=== PATIENT | female | born 1990 | race Caucasian/White ===

== ENCOUNTER 2016-11-15 19:25 | Emergency (ER) | payer BC, MEDICAID ==
[~2016-11-15] VITALS: Ht 167.6 cm; Wt 54.4 kg
[~2016-11-15 19:25] MED LIST: HYDR-3714 PO
[2016-11-15 19:42] LABS: BASOPHILS % (AUTO) 0 % (0-10); EOSINOPHILS # (AUTO) 0.2 10^3/uL (0.0-0.3); EOSINOPHILS % (AUTO) 2 % (0-10); LYMPHOCYTES # (AUTO) 0.8 X 10^3 (1.0-4.0); LYMPHOCYTES % (AUTO) 7 % (12-44); MEAN CORPUSCULAR HEMOGLOBIN 31 PG (25-34); MEAN CORPUSCULAR HGB CONC 33 G/DL (32-36); MEAN CORPUSCULAR VOLUME 94 FL (80-99); MEAN PLATELET VOLUME 11.3 FL (7.4-10.4); MONOCYTES # (AUTO) 0.7 X 10^3 (0.0-1.0); MONOCYTES % (AUTO) 7 % (0-12); NEUTROPHILS # (AUTO) 8.6 X 10^3 (1.8-7.8); NEUTROPHILS % (AUTO) 84 % (42-75); PLATELET COUNT 228 10^3/uL (130-400); RED BLOOD COUNT 5.22 10^6/uL (4.35-5.85); RED CELL DISTRIBUTION WIDTH 13.2 % (10.0-14.5); WHITE BLOOD COUNT 10.2 10^3/uL (4.3-11.0)
[2016-11-15 20:05] LABS: BAND NEUTROPHILS 3 %; BASOPHILS % (MANUAL) 0 %; EOSINOPHILS % (MANUAL) 4 %; LYMPHOCYTES % (MANUAL) 15 %; NEUTROPHILS % (MANUAL) 78 %
[2016-11-15 20:11] LABS: ALANINE AMINOTRANSFERASE 14 U/L (0-55); ALBUMIN 4.8 G/DL (3.2-4.5); AMYLASE 77 U/L (25-125); ANION GAP 14 MMOL/L (5-14); ASPARTATE AMINO TRANSFERASE 19 U/L (5-34); BILIRUBIN,TOTAL 0.9 MG/DL (0.1-1.0); BLOOD UREA NITROGEN 12 MG/DL (7-18); BUN/CREATININE RATIO 15; CALCIUM 9.3 MG/DL (8.5-10.1); CARBON DIOXIDE 22 MMOL/L (21-32); CHLORIDE 104 MMOL/L (98-107); GFR ESTIMATED > 60; GLUCOSE 116 MG/DL (70-105); LIPASE 10 U/L (8-78); POTASSIUM 3.4 MMOL/L (3.6-5.0); SODIUM 140 MMOL/L (135-145); TOTAL PROTEIN 7.6 G/DL (6.4-8.2)
[2016-11-15 20:24] LABS: BILIRUBIN,URINE NEGATIVE (NEGATIVE); KETONES,URINE 4+ (NEGATIVE); LEUKOCYTE ESTERASE ,URINE 1+ (NEGATIVE); NITRITE,URINE NEGATIVE (NEGATIVE); PH,URINE 5 (5-9); PROTEIN,URINE 1+ (NEGATIVE); UROBILINOGEN,URINE NORMAL (NORMAL)
[2016-11-15] MEDS ORDERED: FAMOTIDINE 20MG/2ML IV (PEPCID) IV STA (20:28)
[2016-11-15 20:39] LABS: SQUAMOUS EPITHELIAL CELL,UR 0-2 /HPF
[2016-11-15] MEDS ORDERED: NS IV 500 ML 500 ML IV ONE (20:58)
--- NOTE | 2016-11-15 21:05 | ED GI ---
General Chief Complaint: Abdominal/GI Problems Stated Complaint: ABD PAIN Nursing Triage Note: pt arrived via abulance to ed rm 03. pt states she picked up her son from school around 1600 today and starting having sharp abd pain 03/31. pt states she has had multiple vomiting and diarrhea episodes since 1600. ems gave zofran and fluids while in route. pt complains of dizziness. Sepsis Screen: No Definite Risk History of Present Illness Time Seen By Provider: 19:25 Initial Comments Evaluation for abdominal pain, nausea, vomiting and diarrhea. The patient's symptoms started at approximately 1600 today. She reports last feeding at 1330 today. She denies eating any new foods. She denies any household members being ill. Timing/Duration: 1-3 Hours Severity/Quality: Moderate Location: Generalized Abdomen Radiation: No Radiation Activities at Onset: None Modifying Factors: Improves With Lying down, Improves With Resting Associated Symptoms: Fatigue, Nausea/Vomiting Allergies and Home Medications Allergies Coded Allergies: No Known Drug Allergies (Unverified , 11/25/13) Home Medications No Active Prescriptions or Reported Meds Review of Systems Constitutional: no symptoms reported, see HPI EENTM: No Symptoms Reported, See HPI Respiratory: No Symptoms Reported, See HPI Cardiovascular: No Symptoms Reported, See HPI Gastrointestinal: See HPI, Abdominal Pain, Diarrhea, Nausea, Poor Appetite, Vomiting Genitourinary: No Symptoms Reported, See HPI Musculoskeletal: no symptoms reported, see HPI Skin: no symptoms reported, see HPI Psychiatric/Neurological: No Symptoms Reported, See HPI Endocrine: No Symptoms Reported, See HPI Hematologic/Lymphatic: No Symptoms Reported, See HPI All Other Systems Reviewed Negative Unless Noted: Yes Past Cdftjsu-Judvgq-Paqaub Hx Patient Social History Alcohol Use: Occasionally Uses Recreational Drug Use: No Smoking Status: Current Everyday Smoker Type Used: Cigarettes Recent Foreign Travel: No Contact w/Someone Who Travel: No Recent Infectious Disease Expo: No Recent Hopitalizations: Yes (Warts removed from feet. ) Immunizations Up To Date Tetanus Booster (TDap): Less than 5yrs Seasonal Allergies Seasonal Allergies: No Surgeries HX Surgeries: Yes (FOOT SX, BREAST AUGMENTATION) Respiratory Hx Respiratory Disorders: No Cardiovascular Hx Cardiac Disorders: No Neurological Hx Neurological Disorders: No Reproductive System Hx Reproductive Disorders: No Sexually Transmitted Disease: No HIV/AIDS: No Female Reproductive Disorders: Denies Genitourinary Hx Genitourinary Disorders: No Gastrointestinal Hx Gastrointestinal Disorders: No Musculoskeletal Hx Musculoskeletal Disorders: No Endocrine Hx Endocrine Disorders: No HEENT HX ENT Disorders: No Cancer Hx Cancer: No Psychosocial Hx Psychiatric Problems: No Integumentary HX Skin/Integumentary Disorder: No Blood Transfusions Hx Blood Disorders: No Reviewed Nursing Assessment Reviewed/Agree w Nursing PMH: Yes Physical Exam Vital Signs VS - Last 72 Hours, by Label 11/15/16 19:29 Temp 98.2 Pulse 80 Resp 18 B/P (MAP) 125/87 Pulse Ox 99 O2 Delivery Room Air Capillary Refill : Less Than 3 Seconds General Appearance: WD/WN, no apparent distress HEENT: PERRL/EOMI, normal ENT inspection, TMs normal, pharynx normal Neck: non-tender, full range of motion, supple, normal inspection Respiratory: chest non-tender, lungs clear Cardiovascular: normal peripheral pulses, regular rate, rhythm, no murmur Gastrointestinal: normal bowel sounds, soft, no organomegaly, guarding, rebound , tenderness (epigastric), other (negative Forte and psoas sign) Extremities: normal range of motion, non-tender, normal capillary refill Back: normal inspection, no CVA tenderness, no vertebral tenderness, No CVA tenderness (R), No CVA tenderness (L) Neurologic/Psychiatric: no motor/sensory deficits, alert, normal mood/affect, oriented x 3 Skin: normal color, warm/dry Lymphatic: no adenopathy Progress/Results/Core Measures Results/Orders Lab Results Laboratory Tests Test 11/15/16 19:25 11/15/16 20:18 Range/Units White Blood Count 10.2 4.3-11.0 10^3/uL Red Blood Count 5.22 4.35-5.85 10^6/uL Hemoglobin 16.2 H 11.5-16.0 G/DL Hematocrit 49 35-52 % Mean Corpuscular Volume 94 80-99 FL Mean Corpuscular Hemoglobin 31 25-34 PG Mean Corpuscular Hemoglobin Concent 33 32-36 G/DL Red Cell Distribution Width 13.2 10.0-14.5 % Platelet Count 228 130-400 10^3/uL Mean Platelet Volume 11.3 H 7.4-10.4 FL Neutrophils (%) (Auto) 84 H 42-75 % Lymphocytes (%) (Auto) 7 L 12-44 % Monocytes (%) (Auto) 7 0-12 % Eosinophils (%) (Auto) 2 0-10 % Basophils (%) (Auto) 0 0-10 % Neutrophils # (Auto) 8.6 H 1.8-7.8 X 10^3 Lymphocytes # (Auto) 0.8 L 1.0-4.0 X 10^3 Monocytes # (Auto) 0.7 0.0-1.0 X 10^3 Eosinophils # (Auto) 0.2 0.0-0.3 10^3/uL Basophils # (Auto) 0.0 0.0-0.1 10^3/uL Neutrophils % (Manual) 78 % Lymphocytes % (Manual) 15 % Monocytes % (Manual) 0 % Eosinophils % (Manual) 4 % Basophils % (Manual) 0 % Band Neutrophils 3 % Blood Morphology Comment NORMAL Sodium Level 140 135-145 MMOL/L Potassium Level 3.4 L 3.6-5.0 MMOL/L Chloride Level 104 98-107 MMOL/L Carbon Dioxide Level 22 21-32 MMOL/L Anion Gap 14 5-14 MMOL/L Blood Urea Nitrogen 12 7-18 MG/DL Creatinine 0.80 0.60-1.30 MG/DL Estimat Glomerular Filtration Rate > 60 BUN/Creatinine Ratio 15 Glucose Level 116 H 70-105 MG/DL Calcium Level 9.3 8.5-10.1 MG/DL Total Bilirubin 0.9 0.1-1.0 MG/DL Aspartate Amino Transf (AST/SGOT) 19 5-34 U/L Alanine Aminotransferase (ALT/SGPT) 14 0-55 U/L Alkaline Phosphatase 67 40-136 U/L Total Protein 7.6 6.4-8.2 G/DL Albumin 4.8 H 3.2-4.5 G/DL Amylase Level 77 25-125 U/L Lipase 10 8-78 U/L Urine Color YELLOW Urine Clarity SLIGHTLY CLOUDY Urine pH 5 5-9 Urine Specific [place] 1.025 H 1.016-1.022 Urine Protein 1+ H NEGATIVE Urine Glucose (UA) NEGATIVE NEGATIVE Urine Ketones 4+ H NEGATIVE Urine Nitrite NEGATIVE NEGATIVE Urine Bilirubin NEGATIVE NEGATIVE Urine Urobilinogen NORMAL NORMAL MG/DL Urine Leukocyte Esterase 1+ H NEGATIVE Urine RBC (Auto) NEGATIVE NEGATIVE Urine RBC NONE /HPF Urine WBC 5-10 H /HPF Urine Squamous Epithelial Cells 0-2 /HPF Urine Crystals NONE /LPF Urine Bacteria TRACE /HPF Urine Casts NONE /LPF Urine Mucus MODERATE H /LPF Urine Culture Indicated YES My Orders Orders - JACQUELIN MAXWELL Amylase (11/15/16 19:37) Cbc With Automated Diff (11/15/16 19:37) Comprehensive Metabolic Panel (11/15/16 19:37) Lipase (11/15/16 19:37) Ua Culture If Indicated (11/15/16 19:37) Manual Differential (11/15/16 19:25) Urine Bedside (11/15/16 19:47) Saline Lock/Iv-Start (11/15/16 19:55) Famotidine Injection (Pepcid Injection) (11/15/16 20:28) Urine Culture (11/15/16 20:18) Saline Lock/Iv-Start (11/15/16 20:58) Ns Iv 500 Ml (Sodium Chloride 0.9%) (11/15/16 20:58) Rx-Loperamide (Rx-Imodium) (11/15/16 21:15) Rx-Ondansetron Po (Rx-Zofran Po) (11/15/16 21:15) Medications Given in ED Current Medications Medications Dose Ordered Sig/Doug Route Start Time Stop Time Status Last Admin Dose Admin Sodium Chloride 500 ml @ 0 mls/hr Q0M ONCE IV 11/15/16 20:58 11/15/16 20:59 DC 11/15/16 21:17 500 MLS/HR Vital Signs/I&O Vital Sign - Last 12Hours 11/15/16 19:29 Temp 98.2 Pulse 80 Resp 18 B/P (MAP) 125/87 Pulse Ox 99 O2 Delivery Room Air Blood Pressure Mean: 100 Point of Care Testing Urine -Bedside: Negative Progress Note : Time: 19:25 Progress Note Initial evaluation completed, patient was given Zofran IV on the way here she is continuing to have IV normal saline infusing. Labs ordered we'll reevaluate after these are completed. 2015 labs all essentially normal, WBC 10.2, hemoglobin 16.2, amylase 77, lipase 10, sodium 140, potassium 3.4. UA essentially normal with 1+ leukocyte Estrace, 4+ ketones, 1+ protein, 5-10 WBCs. Urine hCG negative. Patient complaining of mild abdominal pain Pepcid 20 mg IV ordered. 2200 patient reports less nausea and vomiting. Feel she can be discharged home. Taking a few ice chips by mouth. Departure Impression Impression: Primary Impression: Gastroenteritis Additional Impressions: Nausea & vomiting Qualified Codes: R11.14 - Bilious vomiting Diarrhea Qualified Codes: R19.7 - Diarrhea, unspecified Disposition: 01 HOME, SELF-CARE Condition: Improved Departure-Patient Inst. Decision time for Depature: 21:00 Patient Instructions: Acute Abdomen (Belly Pain), Adult (DC), Dehydration, Adult (DC), Nausea and Vomiting, Adult (DC), Diarrhea in Adolescents and Adults Add. Discharge Instructions: All discharge instructions reviewed with patient and/or family. Voiced understanding. Clear liquids for the next 4 hours. Then may start bland foods. Use Zofran as needed for nausea or vomiting. Scripts No Active Prescriptions or Reported Meds Work/School Note: Work Release Form Date Seen in the Emergency Department: Nov 15, 2016 Return to Work: Nov 17, 2016 Restrictions: No Restrictions JACQUELIN MAXWELL Nov 15, 2016 21:05
[2016-11-15] MEDS ORDERED: RX-ONDANSETRON 4 MG ODT (ZOFRAN) PPK #4 PO ONE (21:15)
[2016-11-15] MEDS ORDERED: RX-LOPERAMIDE 2 MG (IMODIUM) CAP PPK#4 PO ONE (21:15)
[2016-11-15 22:18] VITALS: BP 118/69
== END 2016-11-15 22:18 | disposition home or self-care (01) ==
LOC: EDUNIT# 19:25 → ER 19:27
DX: K52.9 Noninfective gastroenteritis and colitis, unspecified (principal)
CPT/HCPCS: 36415; 80053; 81000; 82150; 83690; 84703; 85007; 85027; 87088; 96361; 96374